=== PATIENT | male | born 1970 ===

== ENCOUNTER 2021-01-16 15:33 | Inpatient (IN) ==
[2021-01-16] MEDS ORDERED: SODIUM CHLORIDE 0.9% 1,000 ML IV STA (16:11)
[2021-01-16] MEDS ORDERED: THIAMINE 200 MG/2 ML VIAL IV STA (16:12)
[2021-01-16 16:19] LABS: Eosinophils % 0.7 % (0.00-10.9); Hematocrit 38.3 VOL% (42.0-52.0); Hemoglobin 13.6 GM/DL (14.0-18.0); Immature Granulocytes % 0.2 %; Immature Granulocytes Absolute 0.01 #; Lymphocytes # 1.2 10*3/uL (1.4-4.0); Lymphocytes % 29.4 % (21.2-54.2); Mean Corpuscular HGB Conc 35.5 GM/DL (32-36); Mean Corpuscular Volume 104.1 FL (87-102); Mean Platelet Volume 9.7 FL (9.6-12.0); Monocytes % 10.5 % (1.7-12.7); Neutrophils % 58.2 % (38.7-73.9); Platelet Count 124 T/CUMM (130-400); Red Blood Count 3.68 MC/CUMM (3.8-5.5); Red Cell Distribution Width 13.6 % (9.3-17.3); White Blood Count 4.2 T/CUMM (4-12)
[2021-01-16 16:26] LABS: INR 1.2; PT Patient Result 12.9 SECS (10.5-12.0); Partial Thromboplastin Time 32.2 SECS (23.9-33.8)
[2021-01-16 16:41] LABS: Alanine Aminotransferase 55 U/L (16-61); Albumin 3.7 G/DL (3.4-5.0); Alkaline Phosphatase 76 U/L (45-117); Amylase 74 U/L (25-115); Aspartate Amino Transferase 55 U/L (0-37); Blood Urea Nitrogen 10 MG/DL (7-18); Calcium 8.7 MG/DL (8.5-10.1); Carbon Dioxide 24 MMOL/L (21-32); Estimated Glom Filtration Rate 115 ML/MIN; Glucose 92 MG/DL (74-106); Osmolality,Calculated 275.5 MOS/KG (273-304); Potassium 3.4 MMOL/L (3.5-5.1); Sodium 139 MMOL/L (136-145); Total Protein 7.5 G/DL (6.4-8.2)
[2021-01-16 17:13] LABS: Lactic Acid 7.1 MMOL/L (0.4-2.0)
[2021-01-16 17:52] LABS: Bacteria,Urine Occasional /HPF (Few); Bilirubin,Urine Negative (Negative); Blood, Urine Negative (Negative); Glucose,Urine (UA) Negative (Negative); Hyaline Casts,Urine 1 /LPF (0-3); Ketones,Urine 5 mg/dL (Negative); Mucus,Urine Few /LPF (Occasional); Nitrite,Urine Negative (Negative); Protein,Urine Negative; Urine Appearance CLEAR (Clear); Urine Color Yellow (Yellow); Urine Specific Gravity 1.016 (1.001-1.035)
[2021-01-16 18:02] LABS: Barbiturates Screen,Urine Negative (Negative); Benzodiazepines Screen,Urine Negative (Negative); Cannabinoid Screen,Urine Negative (Negative); Opiate Screen,Urine Negative (Negative); Phencyclidine Screen,Urine Negative (Negative)
[2021-01-16] MEDS ORDERED: hydrALAZINE 20 MG/1 ML VIAL IV PRN (18:07)
[2021-01-16] MEDS ORDERED: GLUCAGON 1 MG VIAL IM PRN ×2 (18:07)
[2021-01-16] MEDS ORDERED: diphenhydrAMINE CAP 25 MG CAPSULE PO PRN (18:07)
[2021-01-16] MEDS ORDERED: ZALEPLON 5 MG CAPSULE PO PRN (18:07)
[2021-01-16] MEDS ORDERED: DOCUSATE SODIUM 100 MG CAPSULE PO PRN (18:07)
[2021-01-16] MEDS ORDERED: DEXTROSE 50% 25 GM/50 ML VIAL IV PRN ×2 (18:07)
[2021-01-16] MEDS ORDERED: guaiFENesin/DM ER 600-30 MG TABLET PO PRN (18:07)
[2021-01-16] MEDS ORDERED: SODIUM CHLORIDE 0.9% 2,000 ML IV ONE (18:28)
[2021-01-16] MEDS: ENOXAPARIN 40 MG/0.4 ML SYRINGE SUBCUT SCH (19:12)
[2021-01-16] MEDS: ALBUTEROL/IPRATROPIUM 3 ML NEB RESP TX SCH (20:00)
[2021-01-16] MEDS ORDERED: PIPERACILLIN/TAZOBACTAM 3,375 MG VIAL IV ONE (21:32)
[2021-01-16] MEDS ORDERED: THIAMINE 100 MG TABLET ONE (21:32)
[2021-01-16] MEDS: SODIUM CHLORIDE 0.9% 1,000 ML IV SCH (22:04)
[2021-01-16] MEDS: THIAMINE 100 MG TABLET PO SCH (22:04)
[2021-01-16] MEDS: PIPERACILLIN/TAZOBACTAM 3,375 MG in SODIUM CHLORIDE 0.9% 100 ML IV SCH (22:05)
[2021-01-16] MEDS: ONDANSETRON 4 MG/2 ML VIAL IV PRN (22:09)
[2021-01-16] MEDS: INSULIN LISPRO 100 UNIT/ML SUBCUT SCH (22:12)
[2021-01-17 01:14] LABS: Basophils % 0.5 % (0.0-0.8); Eosinophils # 0.1 10*3/uL (0.0-0.87); Eosinophils % 1.4 % (0.00-10.9); Hematocrit 32.6 VOL% (42.0-52.0); Hemoglobin 11.7 GM/DL (14.0-18.0); Immature Granulocytes % 0.3 %; Immature Granulocytes Absolute 0.01 #; Lymphocytes # 1.4 10*3/uL (1.4-4.0); Lymphocytes % 38.7 % (21.2-54.2); Mean Corpuscular HGB Conc 35.9 GM/DL (32-36); Mean Corpuscular Volume 103.8 FL (87-102); Mean Platelet Volume 9.8 FL (9.6-12.0); Neutrophils % 45.1 % (38.7-73.9); Red Blood Count 3.14 MC/CUMM (3.8-5.5); Red Cell Distribution Width 13.5 % (9.3-17.3); White Blood Count 3.6 T/CUMM (4-12)
[2021-01-17 01:15] LABS: Platelet Count 79 T/CUMM (130-400)
[2021-01-17 01:27] LABS: Albumin 3.1 G/DL (3.4-5.0); Bilirubin,Total 1.4 MG/DL (0.20-1.00); Calcium 8.1 MG/DL (8.5-10.1); Osmolality,Calculated 276.4 MOS/KG (273-304); Potassium 3.3 MMOL/L (3.5-5.1); Total Protein 6.2 G/DL (6.4-8.2)
[2021-01-17] MEDS: ALBUTEROL/IPRATROPIUM 3 ML NEB RESP TX SCH ×4 (01:27→20:00)
[2021-01-17] MEDS ORDERED: VANCOMYCIN INJ 1,000 MG in SODIUM CHLORIDE 0.9% 250 ML IV SCH (02:00)
[2021-01-17 02:21] LABS: Hypochromasia 1+; Microcytosis 1+; Ovalocytes 1+; Platelet Estimate Decreased
[2021-01-17] MEDS: PIPERACILLIN/TAZOBACTAM 3,375 MG in SODIUM CHLORIDE 0.9% 100 ML IV SCH ×2 (05:42→12:37)
[2021-01-17] MEDS: INSULIN LISPRO 100 UNIT/ML SUBCUT SCH ×4 (07:34→22:40)
[2021-01-17] MEDS: SODIUM CHLORIDE 0.9% 1,000 ML IV SCH ×3 (07:49→17:38)
[2021-01-17] MEDS: FOLIC ACID 1 MG TABLET PO SCH (09:39)
[2021-01-17] MEDS: MULTIVITAMIN (CENTRUM) TABLET PO SCH (09:39)
[2021-01-17] MEDS: POTASSIUM CHLORIDE 20 MEQ TABLET PO PRN ×3 (09:39→15:02)
[2021-01-17] MEDS: THIAMINE 100 MG TABLET PO SCH ×2 (09:40→21:30)
[2021-01-17] MEDS: PANTOPRAZOLE 40 MG TABLET PO SCH (09:40)
[2021-01-17] MEDS: ONDANSETRON 4 MG/2 ML VIAL IV PRN (09:44)
[2021-01-17] MEDS ORDERED: LORazepam 2 MG/1 ML VIAL IV PRN (14:36)
[2021-01-17] MEDS: metroNIDAZOLE INJ 500 MG/100 ML PREMIX IV SCH ×2 (15:05→22:36)
[2021-01-17] MEDS: LEVOFLOXACIN INJ 500 MG/100 ML PREMIX IV SCH (15:05)
[2021-01-17] MEDS: ENOXAPARIN 40 MG/0.4 ML SYRINGE SUBCUT SCH (17:51)
[2021-01-18] MEDS: ALBUTEROL/IPRATROPIUM 3 ML NEB RESP TX SCH ×4 (00:54→21:00)
[2021-01-18] MEDS: SODIUM CHLORIDE 0.9% 1,000 ML IV SCH ×4 (01:51→22:38)
[2021-01-18 05:23] LABS: Basophils % 0.8 % (0.0-0.8); Eosinophils # 0.1 10*3/uL (0.0-0.87); Eosinophils % 3.7 % (0.00-10.9); Hematocrit 31.2 VOL% (42.0-52.0); Hemoglobin 11.2 GM/DL (14.0-18.0); Immature Granulocytes % 0.4 %; Immature Granulocytes Absolute 0.01 #; Lymphocytes # 0.5 10*3/uL (1.4-4.0); Mean Corpuscular HGB Conc 35.9 GM/DL (32-36); Mean Platelet Volume 10.6 FL (9.6-12.0); Neutrophils % 55.1 % (38.7-73.9); Red Blood Count 3.03 MC/CUMM (3.8-5.5)
[2021-01-18 05:28] LABS: Platelet Count 60 T/CUMM (130-400); White Blood Count 2.5 T/CUMM (4-12)
[2021-01-18 05:48] LABS: Eosinophils 6 % (0-10); Hypochromasia Slight; Lymphocytes 26 % (20-55); Microcytosis Slight; Ovalocytes Slight; Platelet Estimate Adequate; Segmented Neutrophils 57 % (50-85); Total Cells Counted 100
[2021-01-18 05:57] LABS: Calcium 9.1 MG/DL (8.5-10.1); Osmolality,Calculated 273.5 MOS/KG (273-304); Potassium 3.8 MMOL/L (3.5-5.1)
[2021-01-18 05:59] LABS: Albumin 3.1 G/DL (3.4-5.0); Bilirubin,Direct 0.73 MG/DL (0.0-0.20); Bilirubin,Indirect 2.5 MG/DL (0.0-1.0); Bilirubin,Total 3.2 MG/DL (0.20-1.00); Total Protein 6.3 G/DL (6.4-8.2)
[2021-01-18] MEDS ORDERED: INFLUENZA VIRUS VACCINE 0.5 ML SYRINGE IM ONE (09:00)
[2021-01-18] MEDS: metroNIDAZOLE INJ 500 MG/100 ML PREMIX IV SCH ×3 (09:10→22:38)
[2021-01-18] MEDS: THIAMINE 100 MG TABLET PO SCH ×2 (09:11→21:01)
[2021-01-18] MEDS: MULTIVITAMIN (CENTRUM) TABLET PO SCH (09:11)
[2021-01-18] MEDS: PANTOPRAZOLE 40 MG TABLET PO SCH (09:11)
[2021-01-18] MEDS: FOLIC ACID 1 MG TABLET PO SCH (09:11)
[2021-01-18] MEDS: INSULIN LISPRO 100 UNIT/ML SUBCUT SCH ×4 (09:13→20:55)
[2021-01-18] MEDS ORDERED: DIAZEPAM 5 MG TABLET PO ONE (11:08)
[2021-01-18] MEDS: SODIUM CHLORIDE 0.45% 1,000 ML IV SCH (13:32)
[2021-01-18] MEDS ORDERED: fentaNYL 100 MCG/2 ML VIAL ONE (14:00)
[2021-01-18] MEDS ORDERED: MIDAZOLAM 2 MG/2 ML VIAL ONE (14:00)
[2021-01-18] MEDS ORDERED: fentaNYL 100 MCG/2 ML VIAL IV ONE (14:20)
[2021-01-18] MEDS: LEVOFLOXACIN INJ 500 MG/100 ML PREMIX IV SCH (15:39)
[2021-01-18] MEDS: NICOTINE 21 MG/24 HR PATCH TRANSDERM PRN (15:39)
[2021-01-18] MEDS: ENOXAPARIN 40 MG/0.4 ML SYRINGE SUBCUT SCH (18:06)
[2021-01-19] MEDS: ALBUTEROL/IPRATROPIUM 3 ML NEB RESP TX SCH ×4 (01:19→19:54)
[2021-01-19] MEDS: SODIUM CHLORIDE 0.9% 1,000 ML IV SCH ×4 (02:52→22:30)
[2021-01-19] MEDS: metroNIDAZOLE INJ 500 MG/100 ML PREMIX IV SCH ×3 (06:07→22:20)
[2021-01-19 06:22] LABS: Hemoglobin 11.3 GM/DL (14.0-18.0)
[2021-01-19 07:50] LABS: Basophils % 0.3 % (0.0-0.8); Eosinophils # 0.1 10*3/uL (0.0-0.87); Eosinophils % 3.7 % (0.00-10.9); Hematocrit 30.9 VOL% (42.0-52.0); Hemoglobin 11.4 GM/DL (14.0-18.0); Immature Granulocytes % 0.3 %; Immature Granulocytes Absolute 0.01 #; Lymphocytes # 0.7 10*3/uL (1.4-4.0); Lymphocytes % 24.7 % (21.2-54.2); Mean Corpuscular HGB Conc 36.9 GM/DL (32-36); Mean Corpuscular Volume 102.7 FL (87-102); Mean Platelet Volume 11.1 FL (9.6-12.0); Monocytes % 16.7 % (1.7-12.7); Neutrophils % 54.3 % (38.7-73.9); Platelet Count 59 T/CUMM (130-400); Red Blood Count 3.01 MC/CUMM (3.8-5.5); Red Cell Distribution Width 13.2 % (9.3-17.3)
[2021-01-19 08:04] LABS: INR 1.3; PT Patient Result 14.2 SECS (10.5-12.0); Partial Thromboplastin Time 35.6 SECS (23.9-33.8)
[2021-01-19 08:19] LABS: Calcium 8.4 MG/DL (8.5-10.1); Osmolality,Calculated 260.5 MOS/KG (273-304); Potassium 3.5 MMOL/L (3.5-5.1)
[2021-01-19 08:27] LABS: Eosinophils 3 % (0-10); Hypochromasia 1+; Lymphocytes 24 % (20-55); Microcytosis 1+; Platelet Estimate Decreased; Segmented Neutrophils 63 % (50-85); Total Cells Counted 100
[2021-01-19] MEDS: FOLIC ACID 1 MG TABLET PO SCH (08:29)
[2021-01-19] MEDS: THIAMINE 100 MG TABLET PO SCH ×2 (08:29→21:04)
[2021-01-19] MEDS: PANTOPRAZOLE 40 MG TABLET PO SCH (08:29)
[2021-01-19] MEDS: MULTIVITAMIN (CENTRUM) TABLET PO SCH (08:29)
[2021-01-19] MEDS: INSULIN LISPRO 100 UNIT/ML SUBCUT SCH ×4 (09:19→20:53)
[2021-01-19] MEDS: chlordiazePOXIDE 25 MG CAPSULE PO SCH ×3 (10:45→21:04)
[2021-01-19] MEDS: HYDROmorphone 2 MG/1 ML VIAL IV PRN ×2 (10:46→21:04)
[2021-01-19 12:43] LABS: Hematocrit 33.5 VOL% (42.0-52.0); Hemoglobin 12.1 GM/DL (14.0-18.0)
[2021-01-19] MEDS: LEVOFLOXACIN INJ 500 MG/100 ML PREMIX IV SCH (15:08)
[2021-01-19 18:10] LABS: Hematocrit 32.3 VOL% (42.0-52.0); Hemoglobin 11.6 GM/DL (14.0-18.0)
[2021-01-19] MEDS: SODIUM CHLORIDE 0.45% 1,000 ML IV SCH (19:17)
[2021-01-19] MEDS: ENOXAPARIN 40 MG/0.4 ML SYRINGE SUBCUT SCH (19:18)
[2021-01-19 21:41] LABS: Hematocrit 33.6 VOL% (42.0-52.0); Hemoglobin 12.1 GM/DL (14.0-18.0)
[2021-01-20] MEDS: ALBUTEROL/IPRATROPIUM 3 ML NEB RESP TX SCH ×4 (00:30→19:55)
[2021-01-20] MEDS: chlordiazePOXIDE 25 MG CAPSULE PO SCH ×3 (03:35→21:40)
[2021-01-20] MEDS: HYDROmorphone 2 MG/1 ML VIAL IV PRN ×2 (03:37→08:58)
[2021-01-20 05:41] LABS: Basophils % 0.6 % (0.0-0.8); Eosinophils # 0.2 10*3/uL (0.0-0.87); Hematocrit 31.3 VOL% (42.0-52.0); Hemoglobin 11.3 GM/DL (14.0-18.0); Immature Granulocytes % 0.3 %; Immature Granulocytes Absolute 0.01 #; Lymphocytes # 0.9 10*3/uL (1.4-4.0); Lymphocytes % 25.9 % (21.2-54.2); Mean Corpuscular HGB Conc 36.1 GM/DL (32-36); Mean Corpuscular Volume 103.6 FL (87-102); Monocytes % 17.8 % (1.7-12.7); Neutrophils % 50.4 % (38.7-73.9); Red Blood Count 3.02 MC/CUMM (3.8-5.5); Red Cell Distribution Width 13.2 % (9.3-17.3); White Blood Count 3.6 T/CUMM (4-12)
[2021-01-20 05:49] LABS: Platelet Count 61 T/CUMM (130-400)
[2021-01-20 06:02] LABS: Calcium 8.8 MG/DL (8.5-10.1); Osmolality,Calculated 278.3 MOS/KG (273-304); Potassium 3.3 MMOL/L (3.5-5.1)
[2021-01-20 06:04] LABS: Eosinophils 5 % (0-10); Lymphocytes 29 % (20-55); Platelet Estimate Decreased; Segmented Neutrophils 54 % (50-85); Total Cells Counted 100
[2021-01-20 06:05] LABS: Hypochromasia Slight; Microcytosis Slight
[2021-01-20] MEDS: metroNIDAZOLE INJ 500 MG/100 ML PREMIX IV SCH ×3 (06:32→23:43)
[2021-01-20] MEDS ORDERED: POTASSIUM CHLORIDE 20 MEQ TABLET PO ONE (07:32)
[2021-01-20] MEDS: MULTIVITAMIN (CENTRUM) TABLET PO SCH (09:01)
[2021-01-20] MEDS: PANTOPRAZOLE 40 MG TABLET PO SCH (09:01)
[2021-01-20] MEDS: THIAMINE 100 MG TABLET PO SCH ×2 (09:01→21:40)
[2021-01-20] MEDS: FOLIC ACID 1 MG TABLET PO SCH (09:01)
[2021-01-20] MEDS: INSULIN LISPRO 100 UNIT/ML SUBCUT SCH ×4 (09:03→21:42)
[2021-01-20] MEDS ORDERED: chlordiazePOXIDE 25 MG CAPSULE PO SCH ×2 (10:05→15:00)
[2021-01-20] MEDS: LEVOFLOXACIN INJ 500 MG/100 ML PREMIX IV SCH (15:23)
[2021-01-20] MEDS: SODIUM CHLORIDE 0.45% 1,000 ML IV SCH (16:00)
[2021-01-21] MEDS: ALBUTEROL/IPRATROPIUM 3 ML NEB RESP TX SCH ×4 (00:40→20:47)
[2021-01-21 05:27] LABS: Basophils % 0.8 % (0.0-0.8); Eosinophils # 0.2 10*3/uL (0.0-0.87); Eosinophils % 4.9 % (0.00-10.9); Hematocrit 36.1 VOL% (42.0-52.0); Hemoglobin 13.1 GM/DL (14.0-18.0); Immature Granulocytes % 0.4 %; Immature Granulocytes Absolute 0.02 #; Lymphocytes % 19.4 % (21.2-54.2); Mean Corpuscular HGB Conc 36.3 GM/DL (32-36); Mean Corpuscular Volume 101.4 FL (87-102); Mean Platelet Volume 9.2 FL (9.6-12.0); Monocytes % 12.3 % (1.7-12.7); Neutrophils % 62.2 % (38.7-73.9); Platelet Count 79 T/CUMM (130-400); Red Blood Count 3.56 MC/CUMM (3.8-5.5); Red Cell Distribution Width 13.2 % (9.3-17.3); White Blood Count 4.9 T/CUMM (4-12)
[2021-01-21] MEDS: metroNIDAZOLE INJ 500 MG/100 ML PREMIX IV SCH ×3 (07:05→23:40)
[2021-01-21 08:04] LABS: Calcium 8.7 MG/DL (8.5-10.1); Osmolality,Calculated 274.5 MOS/KG (273-304); Potassium 3.2 MMOL/L (3.5-5.1)
[2021-01-21] MEDS: MULTIVITAMIN (CENTRUM) TABLET PO SCH (08:51)
[2021-01-21] MEDS: THIAMINE 100 MG TABLET PO SCH ×2 (08:51→21:07)
[2021-01-21] MEDS: ONDANSETRON 4 MG/2 ML VIAL IV PRN ×2 (08:51→21:07)
[2021-01-21] MEDS: PANTOPRAZOLE 40 MG TABLET PO SCH (08:52)
[2021-01-21] MEDS: chlordiazePOXIDE 25 MG CAPSULE PO SCH (08:52)
[2021-01-21] MEDS: FOLIC ACID 1 MG TABLET PO SCH (08:52)
[2021-01-21] MEDS: INSULIN LISPRO 100 UNIT/ML SUBCUT SCH ×4 (09:13→21:13)
[2021-01-21] MEDS ORDERED: POTASSIUM CHLORIDE 20 MEQ TABLET PO ONE (10:20)
[2021-01-21] MEDS: LEVOFLOXACIN INJ 500 MG/100 ML PREMIX IV SCH (14:40)
[2021-01-22] MEDS: ALBUTEROL/IPRATROPIUM 3 ML NEB RESP TX SCH ×4 (01:31→19:13)
[2021-01-22 05:18] LABS: Basophils % 0.4 % (0.0-0.8); Eosinophils # 0.3 10*3/uL (0.0-0.87); Eosinophils % 6.6 % (0.00-10.9); Hematocrit 28.6 VOL% (42.0-52.0); Hemoglobin 10.3 GM/DL (14.0-18.0); Immature Granulocytes % 0.2 %; Immature Granulocytes Absolute 0.01 #; Lymphocytes # 1.2 10*3/uL (1.4-4.0); Mean Corpuscular Volume 104.4 FL (87-102); Mean Platelet Volume 10.1 FL (9.6-12.0); Monocytes % 13.5 % (1.7-12.7); Neutrophils % 53.3 % (38.7-73.9); Red Blood Count 2.74 MC/CUMM (3.8-5.5); Red Cell Distribution Width 13.6 % (9.3-17.3); White Blood Count 4.6 T/CUMM (4-12)
[2021-01-22 05:22] LABS: Platelet Count 74 T/CUMM (130-400)
[2021-01-22 05:48] LABS: Hypochromasia 1+; Microcytosis 1+; Platelet Estimate Decreased
[2021-01-22] MEDS: metroNIDAZOLE INJ 500 MG/100 ML PREMIX IV SCH ×2 (06:41→16:25)
[2021-01-22] MEDS: INSULIN LISPRO 100 UNIT/ML SUBCUT SCH ×4 (07:57→21:11)
[2021-01-22 08:03] LABS: Calcium 8.8 MG/DL (8.5-10.1); Osmolality,Calculated 274.5 MOS/KG (273-304); Potassium 3.3 MMOL/L (3.5-5.1)
[2021-01-22] MEDS: THIAMINE 100 MG TABLET PO SCH ×2 (09:32→21:11)
[2021-01-22] MEDS: PANTOPRAZOLE 40 MG TABLET PO SCH (09:32)
[2021-01-22] MEDS: FOLIC ACID 1 MG TABLET PO SCH (09:32)
[2021-01-22] MEDS: MULTIVITAMIN (CENTRUM) TABLET PO SCH (09:32)
[2021-01-22] MEDS: ONDANSETRON 4 MG/2 ML VIAL IV PRN (09:33)
[2021-01-22 10:59] LABS: Hematocrit 30.5 VOL% (42.0-52.0); Hemoglobin 10.9 GM/DL (14.0-18.0)
[2021-01-22] MEDS: SODIUM CHLORIDE 0.45% 1,000 ML IV SCH ×2 (13:31→13:33)
[2021-01-22] MEDS: LEVOFLOXACIN INJ 500 MG/100 ML PREMIX IV SCH (14:22)
[2021-01-22] MEDS: ACETAMINOPHEN 325 MG TABLET PO PRN (16:26)
[2021-01-22] MEDS: NICOTINE 21 MG/24 HR PATCH TRANSDERM PRN (16:29)
[2021-01-22] MEDS: DOCUSATE SODIUM 100 MG CAPSULE PO SCH (21:11)
[2021-01-23] MEDS: metroNIDAZOLE INJ 500 MG/100 ML PREMIX IV SCH ×3 (00:20→19:08)
[2021-01-23] MEDS: ALBUTEROL/IPRATROPIUM 3 ML NEB RESP TX SCH ×4 (00:24→20:42)
[2021-01-23] MEDS: ACETAMINOPHEN 325 MG TABLET PO PRN (03:55)
[2021-01-23 04:23] LABS: Basophils % 0.4 % (0.0-0.8); Eosinophils # 0.2 10*3/uL (0.0-0.87); Eosinophils % 6.2 % (0.00-10.9); Hematocrit 27.3 VOL% (42.0-52.0); Hemoglobin 9.7 GM/DL (14.0-18.0); Lymphocytes # 0.6 10*3/uL (1.4-4.0); Lymphocytes % 22.9 % (21.2-54.2); Mean Corpuscular HGB Conc 35.5 GM/DL (32-36); Mean Corpuscular Volume 105.4 FL (87-102); Mean Platelet Volume 10.6 FL (9.6-12.0); Monocytes % 14.5 % (1.7-12.7); Red Blood Count 2.59 MC/CUMM (3.8-5.5); Red Cell Distribution Width 13.6 % (9.3-17.3)
[2021-01-23 04:34] LABS: Platelet Count 56 T/CUMM (130-400); White Blood Count 2.8 T/CUMM (4-12)
[2021-01-23 04:44] LABS: Platelet Estimate Decreased
[2021-01-23] MEDS: ACETYLCYSTEINE 20% 800 MG/4 ML VIAL RESP TX SCH ×3 (07:20→20:42)
[2021-01-23] MEDS: MULTIVITAMIN (CENTRUM) TABLET PO SCH (09:47)
[2021-01-23] MEDS: DOCUSATE SODIUM 100 MG CAPSULE PO SCH ×2 (09:47→20:26)
[2021-01-23] MEDS: PANTOPRAZOLE 40 MG TABLET PO SCH (09:48)
[2021-01-23] MEDS: THIAMINE 100 MG TABLET PO SCH ×2 (09:48→20:26)
[2021-01-23] MEDS: POLYETHYLENE GLYCOL POWDER 17 GM PACK PO SCH (09:48)
[2021-01-23] MEDS: FOLIC ACID 1 MG TABLET PO SCH (09:48)
[2021-01-23] MEDS: POTASSIUM CHLORIDE 20 MEQ TABLET PO PRN ×3 (09:48→20:26)
[2021-01-23] MEDS ORDERED: LACTATED RINGERS 1,000 ML IV ONE (10:07)
[2021-01-23] MEDS: INSULIN LISPRO 100 UNIT/ML SUBCUT SCH ×3 (10:59→20:28)
[2021-01-23] MEDS: SODIUM CHLORIDE 0.45% 1,000 ML IV SCH (12:30)
[2021-01-23 14:18] LABS: Hematocrit 28.7 VOL% (42.0-52.0); Hemoglobin 10.3 GM/DL (14.0-18.0)
[2021-01-23] MEDS: LEVOFLOXACIN INJ 500 MG/100 ML PREMIX IV SCH (18:02)
[2021-01-24] MEDS: NICOTINE 21 MG/24 HR PATCH TRANSDERM PRN (00:35)
[2021-01-24] MEDS: ALBUTEROL/IPRATROPIUM 3 ML NEB RESP TX SCH ×2 (01:27→08:33)
[2021-01-24] MEDS: ACETYLCYSTEINE 20% 800 MG/4 ML VIAL RESP TX SCH ×2 (01:31→08:34)
[2021-01-24] MEDS: metroNIDAZOLE INJ 500 MG/100 ML PREMIX IV SCH ×2 (02:41→10:44)
[2021-01-24 09:56] LABS: Calcium 8.7 MG/DL (8.5-10.1); Osmolality,Calculated 272.7 MOS/KG (273-304); Potassium 3.6 MMOL/L (3.5-5.1)
[2021-01-24] MEDS: MULTIVITAMIN (CENTRUM) TABLET PO SCH (10:25)
[2021-01-24] MEDS: FOLIC ACID 1 MG TABLET PO SCH (10:25)
[2021-01-24] MEDS: POLYETHYLENE GLYCOL POWDER 17 GM PACK PO SCH (10:26)
[2021-01-24] MEDS: DOCUSATE SODIUM 100 MG CAPSULE PO SCH (10:26)
[2021-01-24] MEDS: THIAMINE 100 MG TABLET PO SCH (10:26)
[2021-01-24] MEDS: INSULIN LISPRO 100 UNIT/ML SUBCUT SCH ×2 (10:43→13:01)
[2021-01-24 11:48] VITALS: BP 99/75
== END 2021-01-24 13:09 | disposition home or self-care (01) | DRG 445 ==
LOC: N.EDINP 15:33 → N.ED 15:33 → N.TELEN 20:39
PROVIDERS: ADMIT Internal Medicine; ATTEND Internal Medicine